=== PATIENT | male | born 1990 | race African-American/Black ===

== ENCOUNTER 2018-11-18 08:08 | Emergency (ER) | payer MEDICAID ==
[~2018-11-18] VITALS: Ht 177.8 cm; Wt 63.5 kg
[2018-11-18 08:44] VITALS: BP 148/80
[2018-11-18] MEDS ORDERED: Azithromycin 250mg tab ORAL ONE (08:45)
[2018-11-18] MEDS ORDERED: Bicillin LA 2.4MMU/4ML SYR IM ONE (08:45)
--- NOTE | 2018-11-18 08:50 | Emergency Room Report ---
History of Present Illness General Chief Complaint: Skin Rash/Abscess Source: Patient Present Illness HPI Patient presents with complaints of several skin lesions including 1 in the right upper lip Patient reports having lesions to bilateral legs as well Patient is here with a friend who reports that patient has been in a certain area has had multiple sexual contacts And they were concerned that the patient had contact with syphilis Patient denies any fevers denies any swollen lymph nodes Denies any chest pain or shortness of breath denies any posterior neck pain Denies any dysuria or frequency Allergies: Coded Allergies: No Known Allergies (Unverified , 11/18/18) Patient History Past Medical History: see triage record Pertinent Family History: none Reviewed Nursing Documentation: PMH: Agreed; PSxH: Agreed Nursing Documentation-PMH Past Medical History: No Stated History Review of Systems All Other Systems: negative except mentioned in HPI Physical Exam Vital Signs Date Time Temp Pulse Resp B/P (MAP) Pulse Ox O2 Delivery O2 Flow Rate FiO2 11/18/18 08:11 98.4 95 18 156/85 98 Room Air Sp02 EP Interpretation: reviewed, normal General Appearance: well appearing, no apparent distress Head: normocephalic, atraumatic Eyes: bilateral eye PERRL, bilateral eye EOMI ENT: normal pharynx, no angioedema, other - Blister herpetic type lesion right upper lip, no obvious dermatomal spread Neck: supple Respiratory: lungs clear Musculoskeletal: normal inspection Neurologic: alert, oriented x3, responsive Skin: other - Right upper lip as noted above, several areas on both lower extremities with break in the skin and surrounding erythema no obvious fluctuance, Lymphatic: no adenopathy Medical Decision Making Diagnostic Impression: Primary Impression: Rash and other nonspecific skin eruption Additional Impression: Cold sore ER Course Given the patient's history and presentation there are multiple differentials and consideration The area on the right upper lip does appear to be consistent with likely cold sore/herpetic lesion Patient also reports likely contact with syphilis and requesting treatment for that Patient's friend who is here as well raise concern for possible syphilis exposure for the patient This is discussed with the patient and her friend The evaluation and interventions here are merely treatment there is no diagnostic process This is not evaluate for HIV or other STDs Patient requires appropriate outpatient follow-up, clinic reevaluation and outpatient testing Last Vital Signs Date Time Temp Pulse Resp B/P (MAP) Pulse Ox O2 Delivery O2 Flow Rate FiO2 1/21/19 08:11 98.4 95 18 156/85 98 Room Air Status: improved Disposition: HOME, SELF-CARE Condition: Stable Scripts Acyclovir* (ACYCLOVIR*) 400 Mg Tablet 400 MG ORAL FIVE TIMES A DAY for 5 Days, TAB Prov: Akbar Gross DO 11/18/18 Additional Instructions: Patient is provided with the discharge instructions notified to follow up with primary doctor in the next 2-3 days otherwise return to the er with any worsening symptoms. Please note that this report is being documented using [employer] technology. This can lead to erroneous entry secondary to incorrect interpretation by the dictating instrument. Akbar Gross DO Nov 18, 2018 08:50
[2018-11-18] MEDS ORDERED: ACYCLOVIR400 MG ORAL (09:05)
[2018-11-18 09:17] VITALS: BP 148/80
--- NOTE | 2018-11-18 09:19 | NUR ---
ED Nurse Note:pt. was treated for STD then received d/c instructions with prescription and left ER with steady gait and friend , condition stable
== END 2018-11-18 09:30 | disposition home or self-care (01) ==
LOC: EMR 09:10
DX: R21 Rash and other nonspecific skin eruption (principal); B00.1 Herpesviral vesicular dermatitis
CPT/HCPCS: 96372; 99283; Q0144